=== PATIENT | female | born 1945 | race Caucasian/White ===

== ENCOUNTER 2022-04-27 10:29 | Inpatient (IN) | payer OTHER, MEDICAID ==
[~2022-04-27] VITALS: Ht 147.3 cm; Wt 38.6 kg
[~2022-04-27 10:29] MED LIST: ACET-2619 PO; ALBU0.0912 INH; AMIO200T66 PO; APIX5TAB PO; BEN10 PO; DOCU-299 PO; ERGO-30 PO; FERR325E14 PO; GABA100C PO; HYDR-5080 PO; LEVO-315 PO; MEX2.5; VITA1TAB44 PO; ZOLP10TA1 PO
[2022-04-27 10:30] VITALS: BP 120/69
--- NOTE | 2022-04-27 10:30 | NUR ---
PT BIBA TO BED 07.
--- NOTE | 2022-04-27 10:42 | NUR ---
Dr. Castro evaluating patient at bedside.
--- NOTE | 2022-04-27 11:04 | NUR ---
CALLED [facility] AND SPOKE WITH TED. SHE REPORTS THAT PT WAS FOUND UNRESPONSIVE- PALE/BLUE/DIAPHORETIC BUT BREATHING AND HAD UPPER BODY SHAKING APPROX 1 MIN. DENIES THAT PT FELL/HIT HEAD. SHE STATED THAT PT WAS STILL "ALTERED". PT HAD A PULSE- NO CPR WAS PERFORMED. DR DOUGHERTY MADE AWARE
[2022-04-27] MEDS ORDERED: levETIRAcetam 1,000 MG in NACL 0.9% 100 ML IV ONE (11:10)
--- NOTE | 2022-04-27 11:35 | NUR ---
IV started and blood samples obtained, handed to ABHISHEK Grace at bedside.
[2022-04-27 11:49] LABS: BASOPHILS # (AUTO) 0.1 K/uL (0.00-0.22); BASOPHILS % (AUTO) 1.1 % (0.0-2.0); EOSINOPHILS # (AUTO) 0.2 K/uL (0-0.4); HEMATOCRIT 39.7 % (36-48); HEMOGLOBIN 13.3 g/dL (12.0-16.0); LYMPHOCYTES # (AUTO) 1.6 K/uL (2.5-16.5); LYMPHOCYTES % (AUTO) 21.8 % (20.5-51.1); MEAN CORPUSCULAR HEMOGLOBIN 35 pg (27-31); MEAN CORPUSCULAR HGB CONC 34 g/dL (33-37); MEAN CORPUSCULAR VOLUME 105.3 fL (80-94); MONOCYTES # (AUTO) 0.7 K/uL (0.8-1.0); MONOCYTES % (AUTO) 9.3 % (1.7-9.3); NEUTROPHILS # (AUTO) 4.9 K/uL (1.8-7.7); NEUTROPHILS % (AUTO) 64.8 % (42.2-75.2); PLATELET COUNT (AUTO) 222 K/uL (140-450); RED BLOOD CELL COUNT(AUTO) 3.77 MIL/uL (4.20-5.40); RED CELL DISTRIBUTION WIDTH 15.2 % (11.6-13.7); WHITE BLOOD COUNT (AUTO) 7.5 K/uL (4.8-10.8)
--- NOTE | 2022-04-27 12:35 | NUR ---
PT C/O 8/10 HIP PAIN AND REQUESTING PAIN MEDICATION. PT REPORTS SHE TAKES NORCO AT HOME. PER MED LIST, PT TAKES NORCO 10/325MG Q4 PRN. DR DOUGHERTY MADE AWARE. RECEIVED VERBAL ORDER FOR NORCO.
[2022-04-27] MEDS ORDERED: HYDROcodone/APAP 10/325 MG 1 TAB TAB PO SCH (12:50)
[2022-04-27 12:57] LABS: ALBUMIN 3.3 g/dL (3.4-5.0); ANION GAP 13.8 (8-16); ASPARTATE AMINOTRANSFERASE 23 U/L (15-37); CARBON DIOXIDE 24.6 mmol/L (21-32); CHLORIDE 108 mmol/L (98-107); CREATININE 0.9 mg/dL (0.6-1.3); GLUCOSE 94 mg/dL (74-106); POTASSIUM 3.4 mmol/L (3.5-5.1); SODIUM SERUM 143 mmol/L (136-145); TOTAL BILIRUBIN 0.2 mg/dL (0.0-1.0); UREA NITROGEN, BLOOD 12 mg/dL (7-18)
[2022-04-27 13:27] LABS: APPEARANCE,URINE SL CLOUDY (CLEAR); BILIRUBIN,URINE NEGATIVE (NEGATIVE); BLOOD, URINE NEGATIVE (NEGATIVE); COLOR,URINE YELLOW (YELLOW); LEUKOCYTE ESTERASE ,URINE TRACE (NEGATIVE); NITRITE, URINE NEGATIVE (NEGATIVE); UGLUCOSE NEGATIVE (NEGATIVE)
[2022-04-27] MEDS ORDERED: ZOLPIDEM 10 MG TAB PO PRN (13:30)
[2022-04-27] MEDS ORDERED: ONDANSETRON 4 MG/2 ML VIAL IVP PRN (13:30)
[2022-04-27] MEDS ORDERED: ACETAMINOPHEN 325 MG TAB PO PRN ×2 (13:30)
[2022-04-27] MEDS ORDERED: MORPHINE SULFATE 2 MG/ML SYR IVP PRN ×2 (13:30)
[2022-04-27] MEDS ORDERED: POTASSIUM CHLORIDE 10 MEQ TABER PO PRN (13:30)
[2022-04-27] MEDS ORDERED: MAG SULF 2000 MG/WATER PREMIX 50 ML IV PRN (13:30)
[2022-04-27] MEDS ORDERED: DOCUSATE SODIUM 100 MG GELCAP PO PRN (13:30)
--- NOTE | 2022-04-27 13:39 | NUR ---
DR. MCPHERSON, ADMITTING DOCTOR, EVALUATING PATIENT AT BEDSIDE.
--- NOTE | 2022-04-27 13:46 | NUR ---
OBTAINED AYESHA SAMPLE, HANDED TO ABHISHEK NESBITT AT BEDSIDE.
--- NOTE | 2022-04-27 14:13 | NUR ---
PT REQUESTING TO LEAVE, STATING SHE FEELS BETTER. DR MCPHERSON CONTACTED STATED SHE EXPLAINED EVERYTHING TO HER ALREADY.
--- NOTE | 2022-04-27 14:28 | NUR ---
CALLED [facility] TO NOTIFY THEM THAT PT IS WILL BE ON HER WAY BACK TO FACILITY.
[2022-04-27 14:39] VITALS: BP 116/71
--- NOTE | 2022-04-27 14:39 | NUR ---
Patient does not wish to proceed with medical care recommended by DR. MCPHERSON. Patient given information related to possible complications, up to and including , which could occur as a result of leaving hospital at this time. Patient verbalizes understanding of risks involved leaving against medical advice. Patient has signed AMA form.
[2022-04-27] MEDS ORDERED: levETIRAcetam 500 MG TAB PO SCH (21:00)
[2022-04-27] MEDS ORDERED: APIXABAN 2.5 MG TAB PO SCH (21:00)
[2022-04-28] MEDS ORDERED: AMIODARONE 200 MG TAB PO SCH (09:00)
[2022-04-28] MEDS ORDERED: GABAPENTIN 100 MG CAP PO SCH (09:00)
== END 2022-04-27 14:39 | disposition left against medical advice (07) | DRG 101 ==
LOC: MED 10:29 → MTU 13:27 → MED 13:30
PROVIDERS: ADMIT Family Medicine; ATTEND Family Medicine
DX: R56.9 Unspecified convulsions (principal); E44.1 Mild protein-calorie malnutrition; Z68.1 Body mass index [BMI] 19.9 or less, adult; M06.9 Rheumatoid arthritis, unspecified; I25.10 Atherosclerotic heart disease of native coronary artery without angina pectoris; E87.6 Hypokalemia; Z20.822 Contact with and (suspected) exposure to COVID-19; Z79.01 Long term (current) use of anticoagulants; Z79.891 Long term (current) use of opiate analgesic; Z79.899 Other long term (current) drug therapy; Z79.1 Long term (current) use of non-steroidal anti-inflammatories (NSAID)
CPT/HCPCS: 36415; 70450; 71045; 80053; 81003; 84484; 85025; 93005; 96365; 99285; J1953